=== PATIENT | male | born 1965 | race Two or more races ===

== ENCOUNTER 2024-05-16 08:34 | Inpatient (IN) | payer MEDICAID, OTHER ==
[~2024-05-16] VITALS: Ht 203.2 cm; Wt 122.0 kg
--- NOTE | 2024-05-16 09:05 | ED.PDOC ---
SOB-HPI HPI Comments 59 year old male presents to the ED with chief complaint of SOB. Patient reports that he has been experiencing SOB with associated productive cough with green phlegm for the past 2 days. Patient relays that he was recently discharged from [facility] 4 days ago for pneumonia, being prescribed antibiotics, however, he has been unable to turkey picker his prescription due to his pharmacy having it on back order. Patient states he is on 3L of O2 at home due to history of COPD and he had used his inhalers with no relief noted in SOB. Patient denies any chest pain, headache, dizziness, fever, chills, or hemoptysis. Chief Complaint: Shortness of Breath Time Seen by MD: 09:01 Reviewed notes: Nurses Notes, Medications, Allergies Information Source: Patient Mode of Arrival: Ambulatory Severity: Moderate Timing: Days Duration: Since onset Context: At Rest PE Risk Factors: None History of: Asthma, COPD Prehospital treatment: Breathing Tx, Oxygen Modifying Factors: Nothing Associated Signs and Symptoms: Cough If cough with SOB: Productive, Yellow, Green Past Medical History PAST MEDICAL HISTORY: Asthma, COPD, HTN Surgical History: CABG Family History Family History: Reviewed,noncontributory to illness Social History Smoker: Non-Smoker Alcohol: Occasionally Drugs: Denies Drug Use Lives In: Home Constitutional: denies: chills, diaphoresis, fatigue, fever, malaise, sweats, weakness, others EENTM: denies: blurred vision, double vision, ear bleeding, ear discharge, ear drainage, ear pain, ear ringing, eye pain, eye redness, hearing loss, mouth pain, mouth swelling, nasal discharge, nose bleeding, nose congestion, nose pain, photophobia, tearing, throat pain, throat swelling, voice changes, others Respiratory: reports: cough, shortness of breath; denies: hemoptysis, orthopnea, SOB at rest, SOB with excertion, stridor, wheezing, others Cardiovascular: denies: chest pain, dizzy spells, diaphoresis, Dyspnea on exertion, edema, irregular heart beat, left arm pain, lightheadedness, palpitations, PND, syncope, others Gastrointestinal: denies: abdomen distended, abdominal pain, blood streaked bowels, constipated, diarrhea, dysphagia, difficulty swallowing, hematemesis, melena, nausea, poor appetite, poor fluid intake, rectal bleeding, rectal pain, vomiting, others Genitourinary: denies: burning, dysuria, flank pain, frequency, hematuria, incontinence, penile discharge, penile sore, pain, testicle pain, testicle swelling, urgency, others Neurological: denies: dizziness, fainting, headache, left sided numbness, left sided weakness, numbness, paresthesia, pre-existing deficit, right sided numbness, right sided weakness, seizure, speech problems, tingling, tremors, weakness, others Musculoskeletal: denies: back pain, gout, joint pain, joint swelling, muscle pain, muscle stiffness, neck pain, others Integumetry: denies: bruises, change in color, change in hair/nails, dryness, laceration, lesions, lumps, rash, wounds, others Allergic/Immunocompromised: denies: Difficulty Healing, Frequent Infections, Hives, Itching, others Hematologic/Lymphatic: denies: anemia, blood clots, easy bleeding, easy bruising, swollen glands, others Endocrine: denies: excessive hunger, excessive sweating, excessive thirst, excessive urination, flushing, intolerance to cold, intolerance to heat, unexplained weight gain, unexplained weight loss, others Psychiatric: denies: anxiety, bipolar disorder, depression, hopeless, panic disorder, schizophrenia, sleepless, suicidal, others All Other Systems: Reviewed and Negative Physical Exam General Appearance: Moderate Distress, Normal HEENT: Normal ENT Inspection, PERRL/EOMI Neck: Full Range of Motion, Non-Tender, Normal, Normal Inspection Respiratory: Accessory Muscle Use, Chest Non-Tender, Respiratory Distress, Other (Coarse breath sounds) Cardiovascular: No Edema, No JVD, No Murmur, No Gallop, Normal Peripheral Pulses, Tachycardia Breast Exam: Deferred Gastrointestinal: No Organomegaly, No Pulsatile Mass, Normal Bowel Sounds, Soft, Other (Umbilical hernia) Genitalia: Deferred Pelvic: Deferred Rectal: Deferred Extremities: No calf tenderness, Normal capillary refill, Normal inspection, Normal range of motion, Non-tender, No pedal edema Musculoskeletal : Apperance: Normal Neurologic: Alert, tongue and groove machine feeder II-XII nml as Tested, No Motor Deficits, Normal Affect, Normal Mood, No Sensory Deficits Cerebellar Function: NOT DONE Reflexes: NOT DONE Skin: Dry, Pallor, Warm Peripheral Pulses: 3+ Radial (R), 3+ Radial (L) Lymphatic: No Adenopathy EKG EKG : Pulse Rate (adult): 159 [place]: Normal Cardiac Rhythm: ST Block: None Hypertrophy: None ST: Normal Was a procedure done? Was a procedure done?: No Differential Dx Differential Diagnosis: Anxiety, Asthma, Bronchitis, CHF, COPD X-Ray, Labs, Meds, VS Vital Signs Date Time Temp Pulse Resp B/P (MAP) Pulse Ox O2 Delivery O2 Flow Rate FiO2 05/16/24 11:00 100 14 198/141 (160) 97 05/16/24 09:45 158 05/16/24 09:35 158 16 94 Nasal Cannula* 3 32 05/16/24 09:35 98.9 158 14 208/138 (161) 94 98.9 05/16/24 09:05 159 05/16/24 08:51 159 05/16/24 08:40 97.6 158 24 168/120 (136) 90 Lab Test 05/16/24 11:22 05/16/24 10:22 Range/Units Troponin I High Sensitivity 18 20 </=54 ng/L White Blood Count 8.2 4.4-10.8 10^3/uL Red Blood Count 6.85 H 4.5-5.90 10^6/uL Hemoglobin 14.4 13.5-17.5 g/dL Hematocrit 47.1 41.0-53.0 % Mean Corpuscular Volume 68.8 L 80.0-100.0 fL Mean Corpuscular Hemoglobin 21.1 L 28.0-32.0 pg Mean Corpuscular Hemoglobin Concent 30.7 L 32.0-36.0 g/dL Red Cell Distribution Width 17.6 H 11.8-14.3 % Platelet Count 214 140-450 10^3/uL Mean Platelet Volume 9.2 6.9-10.8 fL Neutrophils (%) (Auto) 67.2 37.0-80.0 % Lymphocytes (%) (Auto) 15.4 10.0-50.0 % Monocytes (%) (Auto) 13.5 H 0.0-12.0 % Eosinophils (%) (Auto) 2.8 0.0-7.0 % Basophils (%) (Auto) 1.1 0.0-2.0 % Neutrophils # (Auto) 5.5 1.6-8.6 10 ^3/uL Lymphocytes # (Auto) 1.3 0.4-5.4 10 ^3/uL Monocytes # (Auto) 1.1 0-1.3 10 ^3/uL Eosinophils # (Auto) 0.2 0-0.8 10 ^3/uL Basophils # (Auto) 0.1 0-0.2 10 ^3/uL Nucleated Red Blood Cells 0.2 % Sodium Level 132 L 136-145 mmol/L Potassium Level 4.8 3.5-5.1 mmol/L Chloride Level 97 L 98-107 mmol/L Carbon Dioxide Level 27 20-31 mmol/L Anion Gap 8 5-15 Blood Urea Nitrogen 7 L 9-23 mg/dL Creatinine 0.77 0.700-1.30 mg/dL Glomerular Filtration Rate Calc 102 >90 mL/min BUN/Creatinine Ratio 9.1 L 10.0-20.0 Serum Glucose 374 H 74-106 mg/dL Calcium Level 9.4 8.7-10.4 mg/dL B-Type Natriuretic Peptide 174.54 0-100 pg/mL Current Medications Medications (Trade) Dose Ordered Sig/Kaden Route Start Time Stop Time Status Last Admin Methylprednisolone Sodium Succinate (Solu Medrol) 125 mg ONCE ONCE IV 05/16/24 09:00 05/16/24 09:01 DC 05/16/24 09:53 Magnesium Sulfate/ Dextrose 100 ml @ 100 mls/hr ONCE ONCE IV 05/16/24 09:00 05/16/24 09:59 DC 05/16/24 09:52 Ceftriaxone Sodium 50 ml @ 100 mls/hr ONCE ONCE IV 05/16/24 09:00 05/16/24 09:29 DC 05/16/24 09:52 Azithromycin 250 ml @ 125 mls/hr ONCE ONCE IV 05/16/24 09:00 05/16/24 10:59 DC 05/16/24 09:53 Chest XR: FINDINGS: Lines and Tubes: None Lungs: No focal consolidation. Pleura: No effusion. No pneumothorax. Cardiomediastinal contours: Unremarkable Bones: No acute osseous abnormality. IMPRESSION: No acute cardiopulmonary disease. Patient alert. Complaining of shortness a breath. Chest x-ray reviewed does not show any acute process. Was given steroid. Was given breathing treatment. Was given magnesium. Possible pneumonia. Possible pneumonitis. Establish intravenous access. Was given Rocephin. Was given azithromycin. Cardiac marker within normal limits. Tachycardia. Blood pressure elevated. Was given labetalol. Chronic condition. Reviewed his previous visit. Explained to the patient. Continue cardiac monitoring. EKG reviewed does not show any acute changes. Images Reviewed?: Images reviewed and evaluated by me Time of 1ST Reevaluation: 10:01 Reevaluation 1ST: Unchanged Patient Education/Counseling: Diagnosis, Treatment Family Education/Counseling: No Family Present Departure 1 Departure Time of Disposition: 12:50 Impression: Primary Impression: CHF (congestive heart failure) Qualified Codes: I50.43 - Acute on chronic combined systolic (congestive) and diastolic (congestive) heart failure Additional Impression: Hypertensive emergency Disposition: ADMITTED INPATIENT Admit to: Med Surg Condition: Guarded Critical Care Note Critical Care Time?: Yes (90 min-critical care time only) Stability Stability form required: No Heart Score Heart Score: Heart Score Response (Comments) Value History Slightly Suspicious 0 EKG Normal 0 Age 45-64 1 Risk Factors >3 or Hx ASHD 2 Troponin Normal limit 0 Total 3 I personally scribed for JORGE TORRES MD ([email or web address]) on 05/16/24 at 09:05. Electronically submitted by Shmuel Calvo ([email or web address]). I personally scribed for JORGE TORRES MD ([email or web address]) on 05/16/24 at 10:10. Electronically submitted by Shmuel Calvo ([email or web address]). JORGE TORRES MD May 16, 2024 09:05
[2024-05-16 09:35] VITALS: PULSE 158; RESP 16; O2SAT 94
[2024-05-16] MEDS: cefTRIAXone 1GM/50ML D5W 50 ML IV ONE (09:52)
[2024-05-16] MEDS: MAGNESIUM SULFATE 1GM/100ML 100 ML IV ONE (09:52)
[2024-05-16] MEDS: methylPREDNISolone SOD SUCC 125 MG/2 ML VL IV ONE (09:53)
[2024-05-16] MEDS: AZITHROMYCIN 500MG/ 250ML 250 ML IV ONE (09:53)
--- NOTE | 2024-05-16 09:53 | DVH ---
CHEST RADIOGRAPH Indication:sob Technique: Single frontal view of the chest was obtained Comparison: None FINDINGS: Lines and Tubes: None Lungs: No focal consolidation. Pleura: No effusion. No pneumothorax. Cardiomediastinal contours: Unremarkable Bones: No acute osseous abnormality. IMPRESSION: No acute cardiopulmonary disease.
[2024-05-16 10:37] LABS: Basophils # (auto) 0.1 10 ^3/uL (0-0.2); Basophils % (auto) 1.1 % (0.0-2.0); Eosinophils # (auto) 0.2 10 ^3/uL (0-0.8); Eosinophils % (auto) 2.8 % (0.0-7.0); Hematocrit 47.1 % (41.0-53.0); Hemoglobin 14.4 g/dL (13.5-17.5); Lymphocytes # (auto) 1.3 10 ^3/uL (0.4-5.4); Lymphocytes % (auto) 15.4 % (10.0-50.0); Mean Corpuscular Hemoglobin 21.1 pg (28.0-32.0); Mean Corpuscular Hgb Conc. 30.7 g/dL (32.0-36.0); Mean Corpuscular Volume 68.8 fL (80.0-100.0); Monocytes # (auto) 1.1 10 ^3/uL (0-1.3); Monocytes % (auto) 13.5 % (0.0-12.0); Neutrophils # (auto) 5.5 10 ^3/uL (1.6-8.6); Neutrophils % (auto) 67.2 % (37.0-80.0); Nucleated Red Blood Cells % 0.2 %; Platelet Count (auto) 214 10^3/uL (140-450); Red Blood Cells 6.85 10^6/uL (4.5-5.90); Red Cell Distribution Width 17.6 % (11.8-14.3); White Blood Cell 8.2 10^3/uL (4.4-10.8)
[2024-05-16 10:50] LABS: Chloride 97 mmol/L (98-107); Potassium 4.8 mmol/L (3.5-5.1); Sodium 132 mmol/L (136-145)
[2024-05-16 10:51] LABS: Anion Gap 8 (5-15); Carbon Dioxide 27 mmol/L (20-31)
[2024-05-16 10:52] LABS: Calcium 9.4 mg/dL (8.7-10.4)
[2024-05-16 10:56] LABS: Glucose 374 mg/dL (74-106)
[2024-05-16 10:57] LABS: BUN/Creatinine Ratio 9.1 (10.0-20.0); Blood Urea Nitrogen 7 mg/dL (9-23)
[2024-05-16] MEDS ORDERED: TEMAZEPAM 15 MG CAP PO PRN (13:00)
[2024-05-16] MEDS ORDERED: ONDANSETRON HCL 4 MG/2 ML VIAL IV PRN (13:00)
[2024-05-16] MEDS ORDERED: ALBUTEROL SULF 2.5 MG/0.5ML(0.5%) NEB SOLN NEB PRN (13:00)
[2024-05-16] MEDS ORDERED: IPRATROPIUM BROM 0.5 MG/2.5ML INH SOL NEB PRN (13:00)
[2024-05-16] MEDS ORDERED: LORazepam 0.5 MG TAB PO PRN (13:00)
[2024-05-16] MEDS ORDERED: DEXTROSE (50%) 50ML SYRG IV PRN (13:00)
[2024-05-16] MEDS ORDERED: MAALOX PLUS or MAALOX 30 ML PO PRN (13:00)
[2024-05-16] MEDS ORDERED: MORPHINE SULFATE INJ 2 MG/ml SYRG IV PRN (13:00)
--- NOTE | 2024-05-16 13:10 | DVHHP2 ---
History of Present Illness Reason for Visit: Shortness of Breath History of Present Illness 39 yo morbidly obese male COPD CHF ASTHMA and DM history with complaints with shortness ofr breath worsening cough and cold like symptoms and suspected super imposed infection on copd issues recommended for admission Cardiovascular: CAD, CHF, HTN Pulmonary: COPD Endocrine: Diabetes Review of Systems Constitutional: Yes: Weakness; No: Fever, Chills, Sweats, Malaise, Other Eyes: No: Pain, Vision change, Conjunctivae inflammation, Eyelid inflammation, Other, Redness ENT: No: Ear pain, Ear discharge, Nose pain, Nose discharge, Nose congestion, Mouth pain, Mouth swelling, Throat pain, Throat swelling, Other Respiratory: SOB with excertion; No: Cough, Dry, Shortness of breath, Wheezing, Hemoptysis, Pleuritic Pain, Sputum, Wheezing, Other Cardiovascular: No: Chest Pain, Palpitations, Orthopnea, Paroxysmal Noc. Dyspnea, Edema, Lt Headedness, Other Gastrointestinal: No: Nausea, Vomiting, Abdominal Pain, Diarrhea, Constipation, Melena, Hematochezia, Other Genitourinary: No Dysuria, No Frequency, No Incontinence, No Hematuria, No Retention, No Other Musculoskeletal: No: other, neck pain, shoulder pain, arm pain, back pain, hand pain, leg pain, foot pain Skin: No: Rash, Lesions, Jaundice, Bruising, Other Neurological: No: Weakness, Numbness, Incoordination, Change in speech, Confusion, Seizures, Other Allergies: Coded Allergies: NO KNOWN ALLERGIES (Unverified , 05/16/24) Exam Vital Signs Vital Signs Date Time Temp Pulse Resp B/P (MAP) Pulse Ox O2 Delivery O2 Flow Rate FiO2 05/16/24 12:00 93 05/16/24 11:00 14 198/141 (160) 97 05/16/24 09:35 Nasal Cannula* 3 32 05/16/24 09:35 98.9 98.9 General Appearance: Alert, Oriented X3 HEENT: Atraumatic, PERRLA Respiratory: Clear to auscultation (decrease breath sounds with wheezing ), Normal air movement Cardiovascular: Regular rate, Normal S1, Normal S2 Abdominal: Normal bowel sounds, Soft, No tenderness Extremities: No clubbing, No cyanosis Skin: No rashes, No breakdown Neuro: Normal gait, Normal speech Psych/Mental Status: Mood NL Labs/Xrays Labs Test 05/16/24 11:22 05/16/24 10:22 Range/Units Troponin I High Sensitivity 18 </=54 ng/L White Blood Count 8.2 4.4-10.8 10^3/uL Red Blood Count 6.85 H 4.5-5.90 10^6/uL Hemoglobin 14.4 13.5-17.5 g/dL Hematocrit 47.1 41.0-53.0 % Mean Corpuscular Volume 68.8 L 80.0-100.0 fL Mean Corpuscular Hemoglobin 21.1 L 28.0-32.0 pg Mean Corpuscular Hemoglobin Concent 30.7 L 32.0-36.0 g/dL Red Cell Distribution Width 17.6 H 11.8-14.3 % Platelet Count 214 140-450 10^3/uL Mean Platelet Volume 9.2 6.9-10.8 fL Neutrophils (%) (Auto) 67.2 37.0-80.0 % Lymphocytes (%) (Auto) 15.4 10.0-50.0 % Monocytes (%) (Auto) 13.5 H 0.0-12.0 % Eosinophils (%) (Auto) 2.8 0.0-7.0 % Basophils (%) (Auto) 1.1 0.0-2.0 % Neutrophils # (Auto) 5.5 1.6-8.6 10 ^3/uL Lymphocytes # (Auto) 1.3 0.4-5.4 10 ^3/uL Monocytes # (Auto) 1.1 0-1.3 10 ^3/uL Eosinophils # (Auto) 0.2 0-0.8 10 ^3/uL Basophils # (Auto) 0.1 0-0.2 10 ^3/uL Nucleated Red Blood Cells 0.2 % Sodium Level 132 L 136-145 mmol/L Potassium Level 4.8 3.5-5.1 mmol/L Chloride Level 97 L 98-107 mmol/L Carbon Dioxide Level 27 20-31 mmol/L Anion Gap 8 5-15 Blood Urea Nitrogen 7 L 9-23 mg/dL Creatinine 0.77 0.700-1.30 mg/dL Glomerular Filtration Rate Calc 102 >90 mL/min BUN/Creatinine Ratio 9.1 L 10.0-20.0 Serum Glucose 374 H 74-106 mg/dL Calcium Level 9.4 8.7-10.4 mg/dL B-Type Natriuretic Peptide 174.54 0-100 pg/mL Assessment/Plan Assessment/Plan Admit Med/Surge COPD Exacerbation Morbid obesity PRN breathing treatments possible PNA IV abx IV steroids CHF monitor for fluid overload home meds not confirmed DM aggressive sliding scale on steroids maintain tight glucose Plan discussed with: Patient My Orders Orders - TRINA MCDERMOTT MD Procedure Category Date Status Time Ceftriaxone 1gm/50ml PHA 05/17/24 Logged D5w (Rocephin) 10:00 Azithromycin 500mg/ PHA 05/17/24 Logged 250ml (Zithromax 50 10:00 Methylprednisolone PHA 05/16/24 Logged Sod Succ (Solu Medrol 22:00 Albuterol Medneb PHA 05/16/24 Logged (Ventolin Medneb) 13:00 Ipratropium Medneb PHA 05/16/24 Logged (Atrovent Medneb) 13:00 Med Neb Initial RT 05/16/24 Logged Treatment 12:56 Admit ADMIT 05/16/24 Transmitted 12:56 Code Status CODE 05/16/24 Transmitted 12:56 Vital Signs [facility] 05/16/24 In Process 12:56 Review Orders With ANAND 05/16/24 In Process Adm. 12:56 Regular Diet DIET 05/16/24 Transmitted Lunch Lorazepam Tablet PHA 05/16/24 Logged (Ativan Tablet) 13:00 Alum & Mag PHA 05/16/24 Logged Hydrox-Simethicone 13:00 Docusate Sodium PHA 05/16/24 Transmitted Capsule (Colace 13:00 Acetaminophen Tablet PHA 05/16/24 Transmitted (Tylenol Tablet) 13:00 Temazepam (Restoril) PHA 05/16/24 Transmitted 13:00 Notify Md Of Changes ANAND 05/16/24 In Process From Base 12:56 Advance Directive ANAND 05/16/24 In Process 12:56 Basic Metabolic Panel LAB 05/17/24 Verified 04:00 Complete Blood Count LAB 05/17/24 Verified 04:00 Patient Condition ORDERS 05/16/24 Transmitted 12:56 Allergies ANAND 05/16/24 In Process 12:56 Hydrocodone-Acet PHA 05/16/24 Transmitted 5/325mg Tab ([place] 13:00 Ondansetron Hcl PHA 05/16/24 Transmitted (Zofran) 13:00 Morphine 2mg Iv Q4hprn PHA 05/16/24 Transmitted 13:00 Oxygen By Nasal RT 05/16/24 Transmitted Cannula 12:56 Notify Md Of Changes ANAND 05/16/24 In Process From Base 12:56 Glucose Blood PHA 05/16/24 Transmitted (Accu-Chek Comfort 17:00 Agressive Insulin Ss PHA 05/16/24 Transmitted 17:00 Bedtime Insulin Ss PHA 05/16/24 Transmitted 22:00 Dextrose 50% Syringe PHA 05/16/24 Transmitted 13:00 Problem List: (1) Diabetes mellitus type 2 with complications, uncontrolled (2) COPD (chronic obstructive pulmonary disease) with acute bronchitis (3) CHF (congestive heart failure) (4) Hypertensive emergency Date of Service: May 16, 2024 Billing Provider: TRINA MCDERMOTT MD Common Visit Codes: [id number] INP/OBS CARE (HIGH) TRINA MCDERMOTT MD May 16, 2024 13:10
[2024-05-16] MEDS: ALBUTEROL SULF 2.5 MG/0.5ML(0.5%) NEB SOLN ONE (13:32)
[2024-05-16] MEDS: IPRATROPIUM BROM 0.5 MG/2.5ML INH SOL ONE (13:33)
[2024-05-16 13:43] VITALS: BP 198/141; PULSE 93; RESP 24; O2SAT 95
[2024-05-16] MEDS: HYDROcodone-ACET 5/325MG TAB PO PRN (16:00)
[2024-05-16 16:05] LABS: Urine Bacteria None Seen /hpf (None Seen)
[2024-05-16 16:36] VITALS: BP 184/101; PULSE 93; RESP 20; TEMP 97.9; O2SAT 96
[2024-05-16 16:41] LABS: Urine Blood 1+ /uL (Negative); Urine Clarity Clear (Clear); Urine Color Light-Yellow (Yellow); Urine Protein, UAD 2+ (Negative); Urine Specific Gravity 1.032 (1.001-1.035); Urine Urobilinogen Normal (Negative); Urine WBC 1 /hpf (0 - 3); Urine pH 6.5 (5.0-9.0)
[2024-05-16] MEDS: InsuLIN REG 1unit/0.01ml Soln (100units/ml) SC SCH ×2 (16:45→22:48)
[2024-05-16] MEDS: ACCU-CHEK COMFORT CURVE STRIP VI SCH (16:49)
[2024-05-16] MEDS: hydrALAZINE HCL 20 MG/ML VL IV PRN (17:28)
[2024-05-16 18:03] VITALS: O2SAT 91; O2SAT 94
[2024-05-16 18:42] VITALS: BP 162/82
--- NOTE | 2024-05-16 18:47 | ECG ---
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
--- NOTE | 2024-05-16 18:47 | ECG ---
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
--- NOTE | 2024-05-16 18:48 | ECG ---
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
[2024-05-16 19:30] VITALS: RESP 16; O2SAT 94
[2024-05-16] MEDS ORDERED: hydrALAZINE HCL 20 MG/ML VL IV ONE (22:00)
[2024-05-16] MEDS: methylPREDNISolone SOD SUCC 40 MG/ML VL IV SCH (22:00)
[2024-05-17] VITALS (8 sets, daily range): BP systolic 142–145; BP diastolic 77–83; PULSE 80–97; RESP 16–18; TEMP 97.9–98.1; O2SAT 94–98
[2024-05-17] MEDS: InsuLIN REG 1unit/0.01ml Soln (100units/ml) SC SCH (01:47)
[2024-05-17] MEDS: ACCU-CHEK COMFORT CURVE STRIP VI SCH (05:29)
[2024-05-17] MEDS: ALBUTEROL SULF 2.5 MG/0.5ML(0.5%) NEB SOLN NEB PRN (06:26)
[2024-05-17] MEDS: IPRATROPIUM BROM 0.5 MG/2.5ML INH SOL NEB PRN (06:26)
[2024-05-17 07:29] LABS: Chloride 100 mmol/L (98-107); Potassium 4.3 mmol/L (3.5-5.1); Sodium 135 mmol/L (136-145)
[2024-05-17 07:30] LABS: Anion Gap 12 (5-15); Calcium 10.2 mg/dL (8.7-10.4); Carbon Dioxide 23 mmol/L (20-31)
[2024-05-17 07:35] LABS: BUN/Creatinine Ratio 16.7 (10.0-20.0); Blood Urea Nitrogen 14 mg/dL (9-23); Glucose 325 mg/dL (74-106)
[2024-05-17 08:16] LABS: Basophils # (auto) 0 10 ^3/uL (0-0.2); Basophils % (auto) 0.5 % (0.0-2.0); Eosinophils # (auto) 0 10 ^3/uL (0-0.8); Hematocrit 47.4 % (41.0-53.0); Hemoglobin 14.6 g/dL (13.5-17.5); Lymphocytes # (auto) 0.7 10 ^3/uL (0.4-5.4); Lymphocytes % (auto) 7.6 % (10.0-50.0); Mean Corpuscular Hgb Conc. 30.9 g/dL (32.0-36.0); Mean Corpuscular Volume 68.1 fL (80.0-100.0); Monocytes # (auto) 0.6 10 ^3/uL (0-1.3); Monocytes % (auto) 6.5 % (0.0-12.0); Neutrophils # (auto) 8.3 10 ^3/uL (1.6-8.6); Neutrophils % (auto) 85.4 % (37.0-80.0); Nucleated Red Blood Cells % 0.1 %; Platelet Count (auto) 215 10^3/uL (140-450); Red Blood Cells 6.95 10^6/uL (4.5-5.90); Red Cell Distribution Width 18.1 % (11.8-14.3); White Blood Cell 9.7 10^3/uL (4.4-10.8)
[2024-05-17] MEDS: cefTRIAXone 1GM/50ML D5W 50 ML IV SCH (10:01)
[2024-05-17] MEDS: AZITHROMYCIN 500MG/ 250ML 250 ML IV SCH (10:02)
[2024-05-17] MEDS ORDERED: IPRATROPIUM BROM 0.5 MG/2.5ML INH SOL NEB PRN (10:15)
[2024-05-17] MEDS ORDERED: ALBUTEROL SULF 2.5 MG/0.5ML(0.5%) NEB SOLN NEB PRN (10:15)
[2024-05-17] MEDS: DOCUSATE SOD 100 MG CAP PO PRN (12:17)
--- NOTE | 2024-05-17 15:31 | DVHPN2 ---
Subjective Patient continues to report having cough, shortness of breath Reviewed: Care Plan, H&P, Labs, Medications, Previous Orders Changes from previous H/P or p: No Changes General: Per HPI Eyes: No Pain, No Vision change, No Conjunctivae inflammation, No Eyelid inflammation, No Other, No Redness ENT: No Ear pain, No Ear discharge, No Nose pain, No Nose discharge, No Nose congestion, No Mouth pain, No Mouth swelling, No Throat pain, No Throat swelling, No Other Cardiovascular: No Chest Pain, No Palpitations, No Orthopnea, No Paroxysmal Noc. Dyspnea, No Edema, No Lt Headedness, No Other Respiratory: No Cough, No Dry, No Shortness of breath; SOB with excertion; No Wheezing, No Hemoptysis, No Pleuritic Pain, No Sputum, No Other Gastrointestinal: No Nausea, No Vomiting, No Abdominal Pain, No Diarrhea, No Constipation, No Melena, No Hematochezia, No Other Genitourinary: No Dysuria, No Frequency, No Incontinence, No Hematuria, No Retention, No Other Musculoskeletal: No other, No neck pain, No shoulder pain, No arm pain, No back pain, No hand pain, No leg pain, No foot pain Skin: No Rash, No Lesions, No Jaundice, No Bruising, No Other Objective Vitals Vital Signs Date Time Temp Pulse Resp B/P (MAP) Pulse Ox O2 Delivery O2 Flow Rate FiO2 05/17/24 09:13 96 16 96 Room Air* 0 21 05/17/24 08:00 97.9 133/63 (86) 97.9 Intake/Output Intake and Output 05/17/24 07:00 Intake Total 950 ml Balance 950 ml Intake Oral 500 ml IV Total 450 ml # Voids 3 General Appearance: Alert, Oriented X3, Cooperative, No acute distress HEENT: Atraumatic, PERRLA Lungs: Other (Bilateral rhonchi) Cardiovascular: Normal S1, Normal S2 Abdomen: Normal bowel sounds, Soft, No tenderness Musculoskeletal: Normal sensory function, Normal motor function Neuro: Normal gait, Normal speech Psych/Mental Status: Mental status NL, Mood NL Medications Current Medications Medications Dose Ordered Sig/Kaden Route Start Time Stop Time Status Last Admin Dose Admin Ceftriaxone Sodium 50 ml @ 100 mls/hr DAILY@0900 IV 05/17/24 09:00 05/17/24 10:01 100 MLS/HR Azithromycin 250 ml @ 125 mls/hr DAILY IV 05/17/24 10:00 05/17/24 10:02 125 MLS/HR Lorazepam 0.5 mg Q6HP PRN PO 05/16/24 13:00 Al Hydrox/Mg Hydrox/Simethicone 30 ml Q6HP PRN PO 05/16/24 13:00 Docusate Sodium 100 mg BIDPRN PRN PO 05/16/24 13:00 05/17/24 12:17 100 MG Acetaminophen 650 mg Q6HP PRN PO 05/16/24 13:00 Temazepam 15 mg QHSP PRN PO 05/16/24 13:00 Acetaminophen/ Hydrocodone Bitart 1 tab Q4HP PRN PO 05/16/24 13:00 05/17/24 08:51 1 TAB Ondansetron HCl 4 mg Q4HP PRN IV 05/16/24 13:00 Morphine Sulfate 2 mg Q4HPRN PRN IV 05/16/24 13:00 Dextrose 50 ml UD PRN IV 05/16/24 13:00 Hydralazine HCl 15 mg Q8HPRN PRN IV 05/16/24 17:30 05/16/24 17:28 15 MG Insulin Human Regular Q4HR SC 05/17/24 02:00 05/17/24 14:37 20 UNITS Diagnostic Test (Pha) 1 strip Q4HR 05/17/24 06:00 05/17/24 14:10 1 STRIP Albuterol 2.5 mg Q4HPRN PRN NEB 05/17/24 10:15 Ipratropium [place] 0.5 mg Q4HPRN PRN NEB 05/17/24 10:15 Insulin Glargine 15 units HS SC 05/17/24 22:00 Laboratory Results Laboratory Tests 05/17/24 06:36 Chemistry Test 05/17/24 06:36 Calcium Level 10.2 mg/dL (8.7-10.4) Urinalysis Test 05/16/24 16:03 Urine Color Light-yellow (Yellow) Urine Clarity Clear (Clear) Urine pH 6.5 (5.0-9.0) Urine Specific [place] 1.032 (1.001-1.035) Urine Protein 2+ (Negative) H Urine Ketones 1+ (Negative) H Urine Blood 1+ /uL (Negative) H Urine Nitrite Negative (Negative) Urine Bilirubin Negative (Negative) Urine Urobilinogen Normal mg/dL (Negative) Urine Leukocyte Esterase Negative /uL (Negative) Urine RBC 5 /hpf (0 - 3) Urine WBC 1 /hpf (0 - 3) Urine Squamous Epithelial Cells Few /hpf (<5) Urine Bacteria None seen /hpf (None Seen) Urine Glucose 4+ mg/dL (Normal) H Labs and/or images reviewed: Labs reviewed by me, Image(s) reviewed by me Assessment/Plan Assessment/Plan Impression: -acute on chronic hypoxic respiratory failure -probable community-acquired pneumonia, Gram-positive/Gram-negative etiology -diabetes mellitus, uncontrolled -morbid obesity -primary hypertension -COPD with probable exacerbation Plan: -change to consistent carbohydrate diet -stop IV prednisone -regular insulin sliding scale with aggressive scale -start Lantus 15 units q.h.s. -continue antihypertensives -antibiotic therapy: Rocephin, azithromycin -antitussives -repeat labs, chest x-ray in a.m. Total time spent with patient discussing and formulating plan of care: 35 minutes. This medical document was created using an electronic medical record system with Infectious dictation system. Although this document has been carefully reviewed, there may still be some phonetic and typographical errors. These areas are purely typographical due to imperfections of the software programs, and do not reflect any compromise in the patient's medical care. Plan discussed with: Patient, Other (RN) My Orders Orders - OMA GUTHRIE NP Procedure Category Date Status Time Consistent DIET 05/17/24 Transmitted Carb(Ccho)Diabetes Dinner Insulin Lantus PHA 05/17/24 In Process (Glargine) (Lantus) 22:00 Date of Service: May 17, 2024 Billing Provider: OMA GUTHRIE NP Common Visit Codes: [id number] INP/OBS CARE(HIGH) OMA GUTHRIE NP May 17, 2024 15:31
[2024-05-17] MEDS: guaiFENesin-CODEINE Liq 5 ML UD PO ONE (16:50)
[2024-05-17] MEDS: ACETAMINOPHEN 325 MG TAB PO PRN (16:54)
[2024-05-17] MEDS: IPRATROPIUM BROM 0.5 MG/2.5ML INH SOL NEB SCH (19:44)
[2024-05-17] MEDS: ALBUTEROL SULF 2.5 MG/0.5ML(0.5%) NEB SOLN NEB SCH (19:44)
[2024-05-17] MEDS: BUDESONIDE (INHALATION) 0.5 MG/2 ML NEB NEB SCH (19:45)
[2024-05-17] MEDS: INSULIN LANTUS (GLARGINE) 1 /0.01ml (100units/ml) SC SCH (21:45)
[2024-05-18] VITALS (12 sets, daily range): BP systolic 129–150; BP diastolic 71–104; PULSE 56–111; RESP 16–22; TEMP 97.6–98.5; O2SAT 96–100
--- NOTE | 2024-05-18 07:19 | DVH ---
CLINICAL INFORMATION: 59 years old, Male; pneumonia. TECHNIQUE: Single AP portable chest radiograph was obtained. COMPARISON: XY CHEST PORTABLE on DOS: 05/16/24 FINDINGS: Lungs: Atelectasis in the lung bases. No focal consolidation visualized. Portions of the costophrenic angles are excluded from the examination. Cardiac: Heart size is within normal limits. Pulmonary vasculature: Unremarkable. Mediastinum/sheryl: Unremarkable. Bones: No acute osseous abnormality identified. Other: No other significant findings. IMPRESSION: 1. Bibasilar atelectasis. No focal consolidation. 2. Portions of the costophrenic angles are excluded from the [id number] of the exam.
[2024-05-18] MEDS ORDERED: METF-371 PO (10:33)
[2024-05-18] MEDS ORDERED: TIOT1AER IN (10:33)
[2024-05-18] MEDS ORDERED: DILT1TAB12 PO (10:33)
[2024-05-18] MEDS ORDERED: IPRIH INH (10:33)
[2024-05-18] MEDS ORDERED: ZIPR40CA23 PO (10:33)
[2024-05-18] MEDS ORDERED: GABA-1250 PO (10:33)
--- NOTE | 2024-05-18 14:49 | DVHPN2 ---
Subjective Patient reports that his breathing has improved. Reports having abdominal pain. Noted that he showed me a large abdominal hernia. Reviewed: Care Plan, H&P, Labs, Medications, Previous Orders Changes from previous H/P or p: Changes General: Per HPI Eyes: No Pain, No Vision change, No Conjunctivae inflammation, No Eyelid inflammation, No Other, No Redness ENT: No Ear pain, No Ear discharge, No Nose pain, No Nose discharge, No Nose congestion, No Mouth pain, No Mouth swelling, No Throat pain, No Throat swelling, No Other Cardiovascular: No Chest Pain, No Palpitations, No Orthopnea, No Paroxysmal Noc. Dyspnea, No Edema, No Lt Headedness, No Other Respiratory: No Cough, No Dry, No Shortness of breath; SOB with excertion; No Wheezing, No Hemoptysis, No Pleuritic Pain, No Sputum, No Other Gastrointestinal: No Nausea, No Vomiting, No Abdominal Pain, No Diarrhea, No Constipation, No Melena, No Hematochezia, No Other Genitourinary: No Dysuria, No Frequency, No Incontinence, No Hematuria, No Retention, No Other Musculoskeletal: No other, No neck pain, No shoulder pain, No arm pain, No back pain, No hand pain, No leg pain, No foot pain Skin: No Rash, No Lesions, No Jaundice, No Bruising, No Other Objective Vitals Vital Signs Date Time Temp Pulse Resp B/P (MAP) Pulse Ox O2 Delivery O2 Flow Rate FiO2 05/18/24 13:00 97.9 57 22 143/104 (117) 98 97.9 05/18/24 06:44 Nasal Cannula 3.0 05/18/24 06:44 32 Intake/Output Intake and Output 05/18/24 07:00 Intake Total 700 ml Balance 700 ml Intake Oral 400 ml IV Total 300 ml # Voids 1 General Appearance: Alert, Oriented X3, Cooperative, No acute distress HEENT: Atraumatic, PERRLA Lungs: Other (Bilateral rhonchi) Cardiovascular: Normal S1, Normal S2 Abdomen: Normal bowel sounds, Soft, Other (Abdominal hernia) Musculoskeletal: Normal sensory function, Normal motor function Extremities: No clubbing, No cyanosis Neuro: Normal gait, Normal speech Psych/Mental Status: Mental status NL, Mood NL Medications Current Medications Medications Dose Ordered Sig/Kaden Route Start Time Stop Time Status Last Admin Dose Admin Ceftriaxone Sodium 50 ml @ 100 mls/hr DAILY@0900 IV 05/17/24 09:00 05/18/24 09:31 100 MLS/HR Azithromycin 250 ml @ 125 mls/hr DAILY IV 05/17/24 10:00 05/18/24 09:32 125 MLS/HR Lorazepam 0.5 mg Q6HP PRN PO 05/16/24 13:00 Al Hydrox/Mg Hydrox/Simethicone 30 ml Q6HP PRN PO 05/16/24 13:00 Docusate Sodium 100 mg BIDPRN PRN PO 05/16/24 13:00 05/17/24 12:17 100 MG Acetaminophen 650 mg Q6HP PRN PO 05/16/24 13:00 05/17/24 16:54 650 MG Temazepam 15 mg QHSP PRN PO 05/16/24 13:00 Acetaminophen/ Hydrocodone Bitart 1 tab Q4HP PRN PO 05/16/24 13:00 05/18/24 11:30 1 TAB Ondansetron HCl 4 mg Q4HP PRN IV 05/16/24 13:00 Morphine Sulfate 2 mg Q4HPRN PRN IV 05/16/24 13:00 Dextrose 50 ml UD PRN IV 05/16/24 13:00 Hydralazine HCl 15 mg Q8HPRN PRN IV 05/16/24 17:30 05/16/24 17:28 15 MG Insulin Human Regular Q4HR SC 05/17/24 02:00 05/18/24 11:34 12 UNITS Diagnostic Test (Pha) 1 strip Q4HR 05/17/24 06:00 05/18/24 11:31 1 STRIP Insulin Glargine 15 units HS SC 05/17/24 22:00 05/17/24 21:45 15 UNITS Albuterol 2.5 mg Q6HWA NEB 05/17/24 18:00 05/18/24 06:44 2.5 MG Ipratropium [place] 0.5 mg Q6HWA NEB 05/17/24 18:00 05/18/24 06:44 0.5 MG Budesonide 0.5 mg BID NEB 05/17/24 22:00 05/18/24 06:44 0.5 MG Guaifenesin/ Codeine Phosphate 5 ml Q4HPRN PRN PO 05/18/24 14:45 UNV Magnesium Sulfate/ Dextrose 100 ml @ 100 mls/hr Q1HR IV 05/18/24 15:00 05/18/24 16:59 UNV Laboratory Results Laboratory Tests 05/17/24 06:36 Urinalysis Test 05/16/24 16:03 Urine Color Light-yellow (Yellow) Urine Clarity Clear (Clear) Urine pH 6.5 (5.0-9.0) Urine Specific [place] 1.032 (1.001-1.035) Urine Protein 2+ (Negative) H Urine Ketones 1+ (Negative) H Urine Blood 1+ /uL (Negative) H Urine Nitrite Negative (Negative) Urine Bilirubin Negative (Negative) Urine Urobilinogen Normal mg/dL (Negative) Urine Leukocyte Esterase Negative /uL (Negative) Urine RBC 5 /hpf (0 - 3) Urine WBC 1 /hpf (0 - 3) Urine Squamous Epithelial Cells Few /hpf (<5) Urine Bacteria None seen /hpf (None Seen) Urine Glucose 4+ mg/dL (Normal) H Labs and/or images reviewed: Labs reviewed by me, Image(s) reviewed by me Assessment/Plan Assessment/Plan Impression: -acute on chronic hypoxic respiratory failure -probable community-acquired pneumonia, Gram-positive/Gram-negative etiology -diabetes mellitus, uncontrolled -morbid obesity -primary hypertension -COPD with probable exacerbation Plan: -events: Blood sugars have improved. Patient continues to have wheezing. Now reporting abdominal pain, localized in ventral hernia. -continue Rocephin, stop azithromycin -regular insulin sliding scale with aggressive scale -start Lantus 15 units q.h.s. -continue antihypertensives -check influenza a/B, COVID-19 -antitussives -CT abdomen and pelvis Total time spent with patient discussing and formulating plan of care: 35 minutes. This medical document was created using an electronic medical record system with [employer] dictation system. Although this document has been carefully reviewed, there may still be some phonetic and typographical errors. These areas are purely typographical due to imperfections of the software programs, and do not reflect any compromise in the patient's medical care. Plan discussed with: Patient, Other (RN) My Orders Orders - OMA GUTHRIE NP Procedure Category Date Status Time Albuterol Medneb PHA 05/17/24 In Process (Ventolin Medneb) 18:00 Ipratropium Medneb PHA 05/17/24 In Process (Atrovent Medneb) 18:00 Budesonide PHA 05/17/24 In Process (Inhalation) 22:00 Chest Portable XY 05/18/24 Resulted 04:00 Rapid Influenza A&B LAB 05/18/24 Logged 13:01 [facility] Inhouse Covid19 JULIA 05/18/24 Logged 13:01 Guaifenesin-Codeine PHA 05/18/24 Logged Liquid (Robitussin/C 14:45 Ct Ab Pel Wo Con-No CT 05/18/24 Logged Oral Or Iv 14:43 Magnesium Sulfate PHA 05/18/24 Logged 1gm/100ml 15:00 Date of Service: May 18, 2024 Billing Provider: OMA GUTHRIE NP Common Visit Codes: [id number] INP/OBS CARE(HIGH) OMA GUTHRIE NP May 18, 2024 14:49
--- NOTE | 2024-05-18 15:43 | DVH ---
Exam: CT CT AB PEL WO CON-NO ORAL OR IV History: Ventral hernia Comparison Study: None Technique: Multidetector spiral CT of the abdomen and pelvis was performed from lung bases to pubic symphysis. Imaging was performed without IV contrast. Axial, coronal and sagittal multiplanar reform ats were obtained from the axial data set by the technologist. Radiation dose : Abdomen/Pelvis: CTDIvol 27 mGy, DLP 1483.92 mGy*cm. Findings: Evaluation of solid organs is limited due to lack of intravenous contrast use. Lung Bases: No acute or significant lung base finding. Normal heart size. No pleural or pericardial effusion. Liver: The liver is normal in size. No focal lesions. Gallbladder and biliary Tree: Unremarkable Spleen: Unremarkable Pancreas: The pancreas is grossly normal in appearance. Adrenal Glands: Unremarkable Kidneys: Right renal cysts. No hydronephrosis or nephrolithiasis. Bladder: Grossly unremarkable for degree of distention. Bowel: The stomach is grossly normal in appearance. Small bowel and colon are normal in caliber and d istribution. Normal appendix is visualized in the right lower quadrant without findings of appendici tis. Ascites: Absent Lymphadenopathy: No mesenteric, retroperitoneal or periportal lymphadenopathy. Abdominal wall and Mesentery: There is a periumbilical hernia containing fat and a single loop of sma ll bowel. There is an umbilical hernia containing fat. Vasculature: The visualized abdominal aorta is normal in size and caliber. Evaluation of abdominal a nd pelvic vessels is limited due to lack of intravenous contrast. Pelvic Organs: Unremarkable Musculoskeletal: No aggressive focal bony lesions, acute fractures or dislocation. IMPRESSION: 1. Periumbilical hernia containing fat and a single loop of bowel. Loop of bowel is mildly dilated anderson ggesting some level of obstruction. No high-grade bowel obstruction. Other bowel loops are nondilate d. Radiation optimization: All CT scans at this facility use at least one of these dose optimization jules hniques: Automated exposure control mA and/or kV adjustment per patient size (includes targeted exams where dose is matched to clinical indication) or iterative reconstruction. HS:Y
[2024-05-18] MEDS: MAGNESIUM SULFATE 1GM/100ML 100 ML IV SCH (17:20)
[2024-05-18] MEDS: guaiFENesin-CODEINE Liq 5 ML UD PO PRN (17:31)
[2024-05-18] MEDS: LEVALBUTEROL HCL 1.25 MG/3 ML NEB NEB SCH (18:24)
[2024-05-19] VITALS (12 sets, daily range): BP systolic 121–130; BP diastolic 69–80; PULSE 60–89; RESP 12–100; TEMP 97.6–98.3; O2SAT 96–100
[2024-05-19 02:43] LABS: Rapid Influenza A Negative (Negative); Rapid Influenza B Negative (Negative)
--- NOTE | 2024-05-19 12:41 | DVHINCON2 ---
Date of service: May 19, 2024 History of Present Illness 59-year-old male recently diagnosed with pneumonia Ramiro Pennington was being treated with antibiotics admitted secondary to shortness of breath. He also complains of abdominal pain when coughing. Past Medical History COPD. CHF. Asthma. Diabetes. History of hernia. Past Surgical History CABG Family History: Cardiovascular disease G8 FATHER Cerebrovascular accident (CVA) G8 FATHER FH: cancer G8 BROTHER G8 SISTER FH: kidney failure G8 MOTHER Family History Noncontributory Social History Denies tobacco. Occasional alcohol. Denies any IV drug use. Allergies: Coded Allergies: NO KNOWN ALLERGIES (Unverified , 05/16/24) Home Meds Reported Medications Metformin Hydrochloride (Metformin Hcl) 850 Mg Tab, 850 MG PO DAILY, MG 05/18/24 Diltiazem HCl (Diltiazem HCl ER) 360 Mg Tab, 360 MG PO DAILY, TAB 05/18/24 Gabapentin (Gabapentin) 300 Mg Cap, 300 MG PO BID, MG 05/18/24 Ziprasidone HCl (Ziprasidone HCl) 40 Mg Cap, 40 MG PO BID, CAP 05/18/24 Tiotropium [place]-Olodaterol (Stiolto Respimat 2.5-2.5 Mcg/Act) 1 Aer Aer, 2 AER IN DAILY, AER 05/18/24 Ipratropium [place] Hfa (Atrovent Hfa) 17 Mcg Aer, 2 PUFF INH QID PRN for SHORTNESS OF BREATH, GRAMS 05/18/24 Current Medications Current Medications Medications (Trade) Dose Ordered Sig/Kaden Route PRN Reason Start Time Stop Time Status Last Admin Guaifenesin/ Codeine Phosphate (Robitussin/ Codeine Liq) 5 ml Q4HPRN PRN PO FOR COUGH 05/18/24 14:45 05/19/24 01:48 Magnesium Sulfate/ Dextrose 100 ml @ 100 mls/hr Q1HR IV 05/18/24 15:00 05/18/24 16:59 DC 05/18/24 19:00 Levalbuterol HCl (Xopenex Medneb) 1.25 mg Q6HWA NEB 05/18/24 18:00 05/19/24 11:18 Vital Signs Vital Signs Date Time Temp Pulse Resp B/P (MAP) Pulse Ox O2 Delivery O2 Flow Rate FiO2 11/16/24 11:25 77 16 100 05/19/24 11:19 Nasal Cannula* 3 32 05/19/24 08:00 98.2 124/79 (94) 98.2 Physical Exam GEN: Slightly obese male in no acute distress. Alert. HEENT: Normocephalic atraumatic. Moist mucous membranes. Anicteric sclerae. CV: RRR Respiratory: Coarse breath sounds ABD: Obese abdomen with incarcerated periumbilical ventral hernia that is soft without tenderness to palpation. Abdomen is not distended. CT of the abdomen and pelvis: Periumbilical hernia containing fat and single loop of bowel without high-grade bowel obstruction. Labs/Diagnostic Data Labs Test 05/19/24 10:56 05/19/24 01:40 05/17/24 06:36 05/16/24 16:03 Range/Units POC Glucose 299 H 70-106 mg/dl Influenza Type A Antigen Negative Negative Influenza Type B Antigen Negative Negative White Blood Count 9.7 4.4-10.8 10^3/uL Red Blood Count 6.95 H 4.5-5.90 10^6/uL Hemoglobin 14.6 13.5-17.5 g/dL Hematocrit 47.4 41.0-53.0 % Mean Corpuscular Volume 68.1 L 80.0-100.0 fL Mean Corpuscular Hemoglobin 21.0 L 28.0-32.0 pg Mean Corpuscular Hemoglobin Concent 30.9 L 32.0-36.0 g/dL Red Cell Distribution Width 18.1 H 11.8-14.3 % Platelet Count 215 140-450 10^3/uL Mean Platelet Volume 9.7 6.9-10.8 fL Neutrophils (%) (Auto) 85.4 H 37.0-80.0 % Lymphocytes (%) (Auto) 7.6 L 10.0-50.0 % Monocytes (%) (Auto) 6.5 0.0-12.0 % Eosinophils (%) (Auto) 0.0 0.0-7.0 % Basophils (%) (Auto) 0.5 0.0-2.0 % Neutrophils # (Auto) 8.3 1.6-8.6 10 ^3/uL Lymphocytes # (Auto) 0.7 0.4-5.4 10 ^3/uL Monocytes # (Auto) 0.6 0-1.3 10 ^3/uL Eosinophils # (Auto) 0 0-0.8 10 ^3/uL Basophils # (Auto) 0 0-0.2 10 ^3/uL Nucleated Red Blood Cells 0.1 % Sodium Level 135 L 136-145 mmol/L Potassium Level 4.3 3.5-5.1 mmol/L Chloride Level 100 98-107 mmol/L Carbon Dioxide Level 23 20-31 mmol/L Anion Gap 12 5-15 Blood Urea Nitrogen 14 9-23 mg/dL Creatinine 0.84 0.700-1.30 mg/dL Glomerular Filtration Rate Calc 100 >90 mL/min BUN/Creatinine Ratio 16.7 10.0-20.0 Serum Glucose 325 H 74-106 mg/dL Calcium Level 10.2 8.7-10.4 mg/dL Urine Color Light-yellow Yellow Urine Clarity Clear Clear Urine pH 6.5 5.0-9.0 Urine Specific [place] 1.032 1.001-1.035 Urine Protein 2+ H Negative Urine Ketones 1+ H Negative Urine Blood 1+ H Negative /uL Urine Nitrite Negative Negative Urine Bilirubin Negative Negative Urine Urobilinogen Normal Negative mg/dL Urine Leukocyte Esterase Negative Negative /uL Urine RBC 5 0 - 3 /hpf Urine WBC 1 0 - 3 /hpf Urine Squamous Epithelial Cells Few <5 /hpf Urine Bacteria None seen None Seen /hpf Urine Glucose 4+ H Normal mg/dL Test 05/16/24 13:24 05/16/24 10:22 Range/Units Troponin I High Sensitivity 18 </=54 ng/L B-Type Natriuretic Peptide 174.54 0-100 pg/mL Microbiology Date/Time Source Procedure Growth Status 05/19/24 06:00 Nasopharynx Coronavirus COVID-19 PCR (JULIA) - Final Complete Assessment 1. Pneumonia 2. Periumbilical ventral hernia without obstruction Plan/Recommendation 1. Recommend outpatient elective ventral hernia repair if it becomes symptomatic. Plan discussed with: Patient MYRNA SAMPSON MD May 19, 2024 12:41
--- NOTE | 2024-05-19 13:52 | DVHPN2 ---
Subjective Patient reports that his breathing has improved. Reports having abdominal pain. Noted that he showed me a large abdominal hernia. Reviewed: Care Plan, H&P, Labs, Medications, Previous Orders Changes from previous H/P or p: No Changes General: Per HPI Eyes: No Pain, No Vision change, No Conjunctivae inflammation, No Eyelid inflammation, No Other, No Redness ENT: No Ear pain, No Ear discharge, No Nose pain, No Nose discharge, No Nose congestion, No Mouth pain, No Mouth swelling, No Throat pain, No Throat swelling, No Other Cardiovascular: No Chest Pain, No Palpitations, No Orthopnea, No Paroxysmal Noc. Dyspnea, No Edema, No Lt Headedness, No Other Respiratory: No Cough, No Dry, No Shortness of breath; SOB with excertion; No Wheezing, No Hemoptysis, No Pleuritic Pain, No Sputum, No Other Gastrointestinal: No Nausea, No Vomiting, No Abdominal Pain, No Diarrhea, No Constipation, No Melena, No Hematochezia, No Other Genitourinary: No Dysuria, No Frequency, No Incontinence, No Hematuria, No Retention, No Other Musculoskeletal: No other, No neck pain, No shoulder pain, No arm pain, No back pain, No hand pain, No leg pain, No foot pain Skin: No Rash, No Lesions, No Jaundice, No Bruising, No Other Objective Vitals Vital Signs Date Time Temp Pulse Resp B/P (MAP) Pulse Ox O2 Delivery O2 Flow Rate FiO2 05/19/24 13:30 69 12 125/80 97 3.0 32 05/19/24 12:42 98.1 98.1 05/19/24 11:19 Nasal Cannula* Intake/Output Intake and Output 05/19/24 07:00 Intake Total 1650 ml Output Total 675 ml Balance 975 ml Intake Oral 1250 ml IV Total 400 ml Output Urine Total 675 ml General Appearance: Alert, Oriented X3, Cooperative, No acute distress HEENT: Atraumatic, PERRLA Lungs: Other (Bilateral rhonchi) Cardiovascular: Normal S1, Normal S2 Abdomen: Normal bowel sounds, Soft, Other (Abdominal hernia) Musculoskeletal: Normal sensory function, Normal motor function Extremities: No clubbing, No cyanosis Neuro: Normal gait, Normal speech Psych/Mental Status: Mental status NL, Mood NL Medications Current Medications Medications Dose Ordered Sig/Kaden Route Start Time Stop Time Status Last Admin Dose Admin Ceftriaxone Sodium 50 ml @ 100 mls/hr DAILY@0900 IV 05/17/24 09:00 05/19/24 09:39 100 MLS/HR Lorazepam 0.5 mg Q6HP PRN PO 05/16/24 13:00 Al Hydrox/Mg Hydrox/Simethicone 30 ml Q6HP PRN PO 05/16/24 13:00 Docusate Sodium 100 mg BIDPRN PRN PO 05/16/24 13:00 05/18/24 17:31 100 MG Acetaminophen 650 mg Q6HP PRN PO 05/16/24 13:00 05/17/24 16:54 650 MG Temazepam 15 mg QHSP PRN PO 05/16/24 13:00 Acetaminophen/ Hydrocodone Bitart 1 tab Q4HP PRN PO 05/16/24 13:00 05/19/24 13:04 1 TAB Ondansetron HCl 4 mg Q4HP PRN IV 05/16/24 13:00 Morphine Sulfate 2 mg Q4HPRN PRN IV 05/16/24 13:00 Dextrose 50 ml UD PRN IV 05/16/24 13:00 Hydralazine HCl 15 mg Q8HPRN PRN IV 05/16/24 17:30 05/16/24 17:28 15 MG Insulin Human Regular Q4HR SC 05/17/24 02:00 05/19/24 11:22 12 UNITS Diagnostic Test (Pha) 1 strip Q4HR 05/17/24 06:00 05/19/24 11:22 1 STRIP Insulin Glargine 15 units HS SC 05/17/24 22:00 05/18/24 20:56 15 UNITS Ipratropium [place] 0.5 mg Q6HWA NEB 05/17/24 18:00 05/19/24 11:19 0.5 MG Budesonide 0.5 mg BID NEB 05/17/24 22:00 05/19/24 06:33 0.5 MG Guaifenesin/ Codeine Phosphate 5 ml Q4HPRN PRN PO 05/18/24 14:45 05/19/24 13:04 5 ML Levalbuterol HCl 1.25 mg Q6HWA NEB 05/18/24 18:00 05/19/24 11:18 1.25 MG Laboratory Results Laboratory Tests 05/17/24 06:36 Urinalysis Test 05/16/24 16:03 Urine Color Light-yellow (Yellow) Urine Clarity Clear (Clear) Urine pH 6.5 (5.0-9.0) Urine Specific [place] 1.032 (1.001-1.035) Urine Protein 2+ (Negative) H Urine Ketones 1+ (Negative) H Urine Blood 1+ /uL (Negative) H Urine Nitrite Negative (Negative) Urine Bilirubin Negative (Negative) Urine Urobilinogen Normal mg/dL (Negative) Urine Leukocyte Esterase Negative /uL (Negative) Urine RBC 5 /hpf (0 - 3) Urine WBC 1 /hpf (0 - 3) Urine Squamous Epithelial Cells Few /hpf (<5) Urine Bacteria None seen /hpf (None Seen) Urine Glucose 4+ mg/dL (Normal) H Microbiology Microbiology Date/Time Source Procedure Growth Status 05/19/24 06:00 Nasopharynx Coronavirus COVID-19 PCR (JULIA) - Final Complete Labs and/or images reviewed: Labs reviewed by me, Image(s) reviewed by me Assessment/Plan Assessment/Plan Impression: -acute on chronic hypoxic respiratory failure -probable community-acquired pneumonia, Gram-positive/Gram-negative etiology -diabetes mellitus, uncontrolled -morbid obesity -primary hypertension -COPD with probable exacerbation -nonobstructing ventral hernia Plan: -events: Discussed case with surgeon. Ventral hernia we will be addressed as an -continue Rocephin, add doxycycline -regular insulin sliding scale with aggressive scale -continue Lantus 15 units q.h.s. -continue antihypertensives -antitussives -CT abdomen and pelvis: Nonobstructive ventral hernia -repeat labs and chest x-ray are -reassess for discharge tomorrow Total time spent with patient discussing and formulating plan of care: 35 minutes. This medical document was created using an electronic medical record system with [employer] dictation system. Although this document has been carefully reviewed, there may still be some phonetic and typographical errors. These areas are purely typographical due to imperfections of the software programs, and do not reflect any compromise in the patient's medical care. Plan discussed with: Patient, Other (RN) My Orders Orders - OMA GUTHRIE NP Procedure Category Date Status Time Guaifenesin-Codeine PHA 05/18/24 In Process Liquid (Robitussin/C 14:45 Ct Ab Pel Wo Con-No CT 05/18/24 Resulted Oral Or Iv 14:43 Levalbuterol Hcl PHA 05/18/24 In Process (Xopenex Medneb) 18:00 Mrsa Screen JULIA 05/19/24 In Process 01:40 * Surgical Consult CONS 05/19/24 Transmitted Date of Service: May 19, 2024 Billing Provider: OMA GUTHRIE NP Common Visit Codes: [id number] INP/OBS CARE(HIGH) OMA GUTHRIE NP May 19, 2024 13:52
[2024-05-19] MEDS: DOXYCYCLINE 100 MG TAB/CAP PO SCH (23:31)
--- NOTE | 2024-05-20 05:38 | DVH ---
EXAM: XY CHEST PORTABLE Indication:pna Technique: Single frontal view of the chest was obtained Comparison: XY CHEST PORTABLE on DOS: 05/18/24, XY CHEST PORTABLE on DOS: 05/16/24 FINDINGS: Lines and Tubes: None Lungs: No focal consolidation. Pleura: No effusion. No pneumothorax. Cardiomediastinal contours: Unremarkable Bones: No acute osseous abnormality. IMPRESSION: No acute cardiopulmonary disease.
[2024-05-20 07:27] VITALS: PULSE 149; RESP 17; O2SAT 100
[2024-05-20 07:35] VITALS: PULSE 151; RESP 17; O2SAT 100
[2024-05-20 09:00] VITALS: BP 129/85; PULSE 152; RESP 20; TEMP 97.5; O2SAT 98
[2024-05-20 11:48] VITALS: PULSE 144; RESP 18; O2SAT 99
[2024-05-20 11:54] VITALS: PULSE 144; RESP 18; O2SAT 100
[2024-05-20 13:00] VITALS: BP 140/108; PULSE 149; RESP 18; TEMP 97.5; O2SAT 98
[2024-05-20] MEDS ORDERED: DOXY100C79 PO (13:38)
[2024-05-20] MEDS ORDERED: PRED20TA2 PO (13:38)
[2024-05-20] MEDS ORDERED: TIOT1AER IN (13:40)
--- NOTE | 2024-05-20 13:45 | DVHDS2 ---
Discharge Summary Date of Admission May 16, 2024 at 12:56 Date of Discharge: May 20, 2024 Admitting Diagnosis COPD with bronchitis Labs/Diagnostic Data: Laboratory Results Test 05/20/24 09:49 05/19/24 01:40 05/17/24 06:36 05/16/24 16:03 POC Glucose 265 mg/dl (70-106) Influenza Type A Antigen Negative (Negative) Influenza Type B Antigen Negative (Negative) White Blood Count 9.7 10^3/uL (4.4-10.8) Red Blood Count 6.95 10^6/uL (4.5-5.90) Hemoglobin 14.6 g/dL (13.5-17.5) Hematocrit 47.4 % (41.0-53.0) Mean Corpuscular Volume 68.1 fL (80.0-100.0) Mean Corpuscular Hemoglobin 21.0 pg (28.0-32.0) Mean Corpuscular Hemoglobin Concent 30.9 g/dL (32.0-36.0) Red Cell Distribution Width 18.1 % (11.8-14.3) Platelet Count 215 10^3/uL (140-450) Mean Platelet Volume 9.7 fL (6.9-10.8) Neutrophils (%) (Auto) 85.4 % (37.0-80.0) Lymphocytes (%) (Auto) 7.6 % (10.0-50.0) Monocytes (%) (Auto) 6.5 % (0.0-12.0) Eosinophils (%) (Auto) 0.0 % (0.0-7.0) Basophils (%) (Auto) 0.5 % (0.0-2.0) Neutrophils # (Auto) 8.3 10 ^3/uL (1.6-8.6) Lymphocytes # (Auto) 0.7 10 ^3/uL (0.4-5.4) Monocytes # (Auto) 0.6 10 ^3/uL (0-1.3) Eosinophils # (Auto) 0 10 ^3/uL (0-0.8) Basophils # (Auto) 0 10 ^3/uL (0-0.2) Nucleated Red Blood Cells 0.1 % Sodium Level 135 mmol/L (136-145) Potassium Level 4.3 mmol/L (3.5-5.1) Chloride Level 100 mmol/L (98-107) Carbon Dioxide Level 23 mmol/L (20-31) Anion Gap 12 (5-15) Blood Urea Nitrogen 14 mg/dL (9-23) Creatinine 0.84 mg/dL (0.700-1.30) Glomerular Filtration Rate Calc 100 mL/min (>90) BUN/Creatinine Ratio 16.7 (10.0-20.0) Serum Glucose 325 mg/dL (74-106) Calcium Level 10.2 mg/dL (8.7-10.4) Urine Color Light-yellow (Yellow) Urine Clarity Clear (Clear) Urine pH 6.5 (5.0-9.0) Urine Specific [place] 1.032 (1.001-1.035) Urine Protein 2+ (Negative) Urine Ketones 1+ (Negative) Urine Blood 1+ /uL (Negative) Urine Nitrite Negative (Negative) Urine Bilirubin Negative (Negative) Urine Urobilinogen Normal mg/dL (Negative) Urine Leukocyte Esterase Negative /uL (Negative) Urine RBC 5 /hpf (0 - 3) Urine WBC 1 /hpf (0 - 3) Urine Squamous Epithelial Cells Few /hpf (<5) Urine Bacteria None seen /hpf (None Seen) Urine Glucose 4+ mg/dL (Normal) Test 05/16/24 13:24 05/16/24 10:22 Troponin I High Sensitivity 18 ng/L (</=54) B-Type Natriuretic Peptide 174.54 pg/mL (0-100) Other Laboratory Tests 05/17/24 06:36 Brief Hx & Hospital Course: istory of Present Illness 39 yo morbidly obese male COPD CHF ASTHMA and DM history with complaints with shortness ofr breath worsening cough and cold like symptoms and suspected super imposed infection on copd issues recommended for admission. Course of hospitalization: Patient was started on antibiotic therapy with Rocephin and doxycycline. Bronchodilators were started to q.6 hours. Patient was also placed on inhaled corticosteroids. Patient was started on complaining of abdominal pain, with noted ventral hernia. CT scan was performed of the abdomen and pelvis which did not show any obstruction. Patient has been tolerating oral intake and having bowel movements while in the hospital. Surgical consultation has been placed regarding hernia, who recommends that the patient be treated for his pulmonary infection and follow up as an outpatient with his PCP. The patient was also noted to have severe uncontrolled diabetes mellitus, probably attributed to IV Solu-Medrol. The patient's blood sugars have been controlled. The patient will be discharged home and continued on antibiotic therapy. He will have a refill with his home MDI treatments. The patient will also be given a short course of prednisone for his persistent wheezing. He also states that he was oxygen home for which she will continue. The patient will follow up with the discharge Clinic in one week. Physical examination General: Alert and Oriented x3. No acute distress. Well-nourished. Eyes: EOMI. Anicteric. HENT: Moist mucous membranes. Lungs: Clear to auscultation bilaterally. No accessory muscle use. Cardiovascular: Regular rate and rhythm. No murmur. No JVD. Abdomen: Soft, non-tender and non-distended. No palpable masses. Extremities: No edema. Non-tender. Skin: No rashes or lesions. Warm. Neurologic: No focal neurological deficits. CN II-XII grossly intact, but not individually tested. Psychiatric: Cooperative. Appropriate mood and affect. Total time spent with patient discussing and formulating plan of care: 35 minutes. This medical document was created using an electronic medical record system with [employer] dictation system. Although this document has been carefully reviewed, there may still be some phonetic and typographical errors. These areas are purely typographical due to imperfections of the software programs, and do not reflect any compromise in the patient's medical care. Consults/Reason for consult General surgery: Ventral hernia Condition at Discharge: Guarded Final Diagnosis/Problems List Acute on chronic hypoxic respiratory failure Secondary Diagnosis: -probable community-acquired pneumonia, Gram-positive/Gram-negative etiology -diabetes mellitus, uncontrolled -morbid obesity -primary hypertension -COPD with probable exacerbation -nonobstructing ventral hernia Discharge Disposition: Home Discharge Instruct/Medications Diet: Cardiac 2g Na,low cholest Activity: No Restrictions, As Tolerated Follow Up/Referral: Follow up with PCP in 1-2 weeks Follow up with discharge Clinic in one week Medications: Prednisone 20 mg p.o. daily x7 days Doxycycline 100 mg p.o. b.i.d. x7 days Continue all previous home medication 36 Discharge Statement: "Patient was advised to return to the ER or call 911 if any headaches, dizziness, shortness of breath, chest pain, abdominal pain, bleeding, fevers, or worsening of medical condition. Patient was counseled about treatment plan, medications, possible side effects, patientverbalized understanding. All questions were answered to the best of my ability. This discharge took greater then 30 minutes in planning, reviewing documentation, counseling the patient, and discussing with other team members." ASSESSMENT ASSESSMENT Assessment Acute on chronic hypoxic respiratory failure Date of Service: May 20, 2024 Billing Provider: OMA GUTHRIE NP Common Visit Codes: 30207-RLC/OBS DISCH DAY >30min OMA GUTHRIE NP May 20, 2024 13:45
[2024-05-20] MEDS: PNEUMOCOCCAL VACC POLYS 25 MCG/0.5 ML VIAL IM ONE (15:29)
[2024-05-20] MEDS: INFLUENZA TRIVALENT 2024-2025 0.5 ML INJ IM ONE (15:30)
== END 2024-05-20 15:42 | disposition home or self-care (01) | DRG 133 ==
LOC: ER 08:34 → OVERFLOW 12:56 → WEST WING 05-17 23:42
PROVIDERS: ADMIT Hospitalist; ATTEND Hospitalist
DX: J96.21 Acute and chronic respiratory failure with hypoxia (principal); I50.43 Acute on chronic combined systolic (congestive) and diastolic (congestive) heart failure; J15.69 Pneumonia due to other Gram-negative bacteria; J15.9 Unspecified bacterial pneumonia; I11.0 Hypertensive heart disease with heart failure; J18.9 Pneumonia, unspecified organism; E10.65 Type 1 diabetes mellitus with hyperglycemia; E66.01 Morbid (severe) obesity due to excess calories; J44.0 Chronic obstructive pulmonary disease with (acute) lower respiratory infection; J44.1 Chronic obstructive pulmonary disease with (acute) exacerbation; I16.1 Hypertensive emergency; I25.10 Atherosclerotic heart disease of native coronary artery without angina pectoris; J20.9 Acute bronchitis, unspecified; K43.9 Ventral hernia without obstruction or gangrene; Z82.3 Family history of stroke; Z82.49 Family history of ischemic heart disease and other diseases of the circulatory system; Z95.1 Presence of aortocoronary bypass graft; Z68.29 Body mass index [BMI] 29.0-29.9, adult
CPT/HCPCS: 36415; 71045; 74176; 80048; 81001; 82962; 83880; 84484; 85025; 87081; 87804; 93005; 94640; 96365; 96375; 99291; G0378; J1815